=== PATIENT | male | born 1975 | race Caucasian/White ===

== ENCOUNTER 2023-12-11 10:03 | Outpatient (CLI) | payer OTHER, SELFPAY ==
--- NOTE | ~2023-12-11 | MR_ITS ---
EXAMINATION: MR abdomen wo/w con DATE: 12/11/2023 10:56 INDICATION: Kidney cysts TECHNIQUE: Magnetic resonance imaging (MRI) of the abdomen was performed without and with 18 mL Multi dalton intravenous contrast. Sequences included coronal T2-weighted SS-FSE, coronal and axial FS 2D-F IESTA, axial STIR FSE, axial T2-weighted SS-FSE, axial T2-weighted FS SS-FSE, axial diffusion-weighte d SE, axial dual-echo T1-weighted FSPGR, and axial and coronal T1-weighted LAVA. Postcontrast axial T 1-weighted LAVA images were obtained in a time course. Postcontrast coronal T1-weighted LAVA images w ere obtained. COMPARISON: None. FINDINGS: Heart size is normal. No pericardial or pleural effusion. Small sliding-type hiatal hernia. Liver, ga llbladder, spleen, pancreas, left kidney and bilateral adrenal glands are normal. There is an 8.0 x 6 .3 x 4.7 cm T2 hyperintense nonenhancing cyst with a couple thin internal septations with no or solid nodular soft tissue components or discernible enhancement along the internal septations. There are a few additional simple-appearing T2 hyperintense nonenhancing cysts in the right kidney right side, t he largest measuring 1.2 cm the remaining 3 measuring <5 mm. Visualized bowels are unremarkable. No p athologically enlarged abdominal lymphadenopathy. Visualized bone marrow signal is normal. IMPRESSION: 1. Benign 8.0 cm Bosniak 2 right renal cyst which requires no further follow-up. Reviewed, dictated and finalized at location A. IMPRESSION: 1. Benign 8.0 cm Bosniak 2 right renal cyst which requires no further follow-up .
== END 2023-12-11 10:04 ==
LOC: MICIMG 10:05
PROVIDERS: PCP Family Medicine; Visit Provider Family Medicine
DX: N28.1 Cyst of kidney, acquired (principal)
CPT/HCPCS: 74183; A9577

== ENCOUNTER 2024-05-07 15:37 | Emergency (ER) | payer OTHER, SELFPAY ==
--- NOTE | ~2024-05-07 | XR_ITS ---
EXAMINATION: XR chest 2V Exam Date/Time: 05/07/2024 15:52 EAR SPECIALIST HISTORY: cough/bodyaches/fever Comparison: None. RESULT: Lines, tubes, and devices: Partially visualized cervical fusion hardware. Lungs and pleura: Clear. Calcified right lower lung granuloma. Cardiomediastinal silhouette: Unremarkable. Other: No acute osseous or upper abdominal finding. IMPRESSION: No acute cardiopulmonary process. Reviewed, dictated and finalized at location K. SPECIALIST
--- NOTE | 2024-05-07 15:38 | ED_ITS ---
HPI - URI/Sore Throat General Chief Complaint: Shortness of Breath/Dyspnea Stated Complaint: SOB/Bodyaches Time Seen by Provider: 05/07/24 15:38 Source: patient Mode of arrival: ambulatory Limitations: no limitations History of Present Illness HPI Narrative: Berto is a 48-year-old male patient presenting to the clinic today with complaints of feeling feverish, headache, body aches, sore throat, nasal congestion, head congestion, chest congestion, and shortness of breath x2 days. He reports that it jamil when he takes in a deep breath. Has a nonproductive cough. No known sick contacts. MD elicited complaint: cough, sore throat, nasal congestion and other (Shortness of breath and lung pain) Related Data Allergies Allergy/AdvReac Type Severity Reaction Status Date / Time No Known Allergies Allergy Verified 05/07/24 15:41 Review of Systems Review of Systems: Pertinent positives per HPI. Patient denies any rash, visual changes, dizziness, chest pain, palpitations, nausea, vomiting, diarrhea, constipation, abdominal pain, or any urinary issues. PMFSH Comments At the time of my signature, I reviewed and agree with the nursing past medical, surgical, social, and family history. There is no relevant family history pertinent to the patient complaint. Exam Narrative: General: Well-developed, well nourished, in no apparent distress Head: Normocephalic, atraumatic Eyes: Pupils equally round and reactive to light bilaterally, EOM intact, sclera and conjunctive clear, no discharge, lids normal Ears: TMs intact and clear, ear canals clear, no drainage, grossly hearing normal. Nose: Nares patent, no discharge, no inflammation, no sinus tenderness. Mouth: Oral pharynx without lesions or masses, good dentition, MMM. Neck: Supple, trachea midline, no enlargement of anterior or posterior cervical nodes, no thyroid masses or goiter palpable. Cardio: Regular rate and rhythm, s1 and s2 normal, no murmur appreciated. Resp: Clear to auscultation bilaterally, no rhonchi, rales, wheezing or rubs Course Course Emergency Course: Portions of this record may have been created with voice recognition software. Level of Care: Express Care Visit Vital Signs Vital signs: Vital signs reviewed MDM - URI/Sore Throat MDM Narrative Medical decision making narrative: At the time of visit patient is resting comfortably on the exam table. Patient appears to be nontoxic. Labs: Influenza test was positive for influenza A. Diagnostics: Chest x-rays negative for any acute cardiopulmonary process. Plan: Patient has influenza A. Will send in prescription for Tamiflu. Risk and benefits of Tamiflu was explained to the patient. Supportive measures were discussed with the patient and they voiced understanding discharge instructions and agrees to treatment plan. Return precautions reviewed Differential Diagnosis Differential diagnosis: Likely upper respiratory infection, otitis media, sinusitis, viral infection, bronchitis, influenza, pharyngitis and other (COVID) Imaging Data Radiologist's impression: ITS Impressions Chest X-Ray 05/07/24 16:00 IMPRESSION: No acute cardiopulmonary process. Discharge Plan Discharge Clinical Impression: Influenza A Patient Disposition: Home, Self-Care Condition: Stable Instructions: Antibiotic Form, Influenza (ED) Additional Instructions: Influenza testing is positive for influenza A Chest x-rays negative for any acute cardiopulmonary process Take prescription medications only as prescribed-Tamiflu May take DayQuil/NyQuil for cold/flu symptoms. Increase fluids and stay well hydrated Tylenol/motrin for pain/fever Flonase and OTC antihistamines as directed Vicks vapor rub to open sinuses Sinus rinses for congestion Cepacol spray, cough drops, throat lozenges, warm tea with honey/lemon, gargle salt water to soothe throat BRAT diet for diarrhea Clear liquids x 24 hours then advance as tolerated for nausea/vomiting Go to the ED if you develop a worsening in your condition- high fever not controlled by Tylenol or Motrin, dehydration, weakness, lethargy, shortness of breath, or chest pain. Follow up with your PCP in 3-5 days if symptoms persist. Patient Language: Serbian Prescriptions: New oseltamivir [Tamiflu] 75 mg capsule 75 mg PO Q12H 5 Days Qty: 10 0RF Follow-up/Referrals: Shreya,MD Yolanda [Primary Care Provider] - Stand Alone Forms: Work/School Release IP Time of Disposition: 16:05 Quality NIHSS Nursing Documentation ED NIHSS nursing documentation: reviewed/agree
[2024-05-07 15:47] VITALS: BP 126/82; PULSE 129; RESP 18; O2SAT 99
[2024-05-07 16:14] LABS: EDINFLUASCREEN Positive (Negative); EDINFLUBSCREEN Negative (Negative)
== END 2024-05-07 16:15 | disposition home or self-care (01) ==
PROVIDERS: Emergency Provider Nurse Practitioner Family; PCP Family Medicine
DX: J10.1 Influenza due to other identified influenza virus with other respiratory manifestations (principal); E78.00 Pure hypercholesterolemia, unspecified; J21.9 Acute bronchiolitis, unspecified; E11.9 Type 2 diabetes mellitus without complications; Z98.84 Bariatric surgery status; Z86.16 Personal history of COVID-19
CPT/HCPCS: 71046; 87804; 99203; G0463